=== PATIENT | female | born 1960 | race Caucasian/White ===

== ENCOUNTER → 2017-09-09 | Day surgery (SDC) | payer OTHER ==
--- NOTE | 2017-09-07 15:06 | Diagnostic Imaging Report ---
PROCEDURE: X-RAY CHEST, TWO VIEWS COMPARISON: None. INDICATIONS: PREOPERATIVE CHEST XRAY FOR CYST REMOVAL FINDINGS: Lungs are well-inflated. No focal consolidation, pleural effusion, or pneumothorax. Cardiomediastinal contour and pulmonary vasculature are within normal limits with the exception of tortuosity and atherosclerotic calcification of the thoracic aorta. No acute osseous abnormality. CONCLUSION: No acute cardiopulmonary abnormality. Dictated by: Ha Cortes M.D. on 09/07/2017 at 11:04 Electronically approved by: Ha Cortes M.D. on 09/07/2017 at 11:04
[~2017-09-09] MED LIST: BENTYL10 MG PO; BUPIVACAINE HCL 0.5% INJ 30 ML VIAL INJ ONE; CLINDAMYCIN PHOS 900MG/ D5W 50 50 ML IV ONE; DEXAMETHASONE SOD PHOS INJ 4 MG/ML VIAL ONE; FENTANYL CITRATE/PF 100MCG/2 ML INJ ONE; KETOROLAC TROMETHAMINE 30 MG/ML VIAL ONE; LEVAQUIN500 MG PO; LIDOCAINE HCL 2% LOCAL INJ 5 ML SDV VIAL INJ ONE; MIDAZOLAM HCL 2 MG/2 ML VIAL ONE; NORCO 7.5-3251 EACH PO; ONDANSETRON HCL INJ 2 MG/ML VIAL ONE; PROPOFOL IV EMULSION 10 MG/ML 20 ML VIAL ONE; SEVOFLURANE INHAL SOLN 250 ML PEN BTL ONE; Z TOPAMAX; Z.0.LEVAQUIN500 MG PO; Z.0.TOPAMAX100 MG PO; Z.0.ZOLOFT100 MG PO
--- NOTE | 2017-09-13 15:14 | Operative Report ---
DATE OF PROCEDURE: September 09, 2017 PREOPERATIVE DIAGNOSIS: Mass, left ring finger. POSTOPERATIVE DIAGNOSIS: Left ring finger ganglion cyst. OPERATION/PROCEDURE PERFORMED: Patient underwent a removal of a left ring finger ganglion followed by release of the A2 emperatriz. LORRY WEIGHER: None. ANESTHESIA: General endotracheal intubation anesthesia. IV FLUIDS: Per the anesthesia record. DESCRIPTION OF PROCEDURE: Ms. Mayen was taken to the operating room and placed in supine position on the operating room table. Following induction of general anesthesia as well as endotracheal intubation, the patient's left upper extremity was examined under anesthesia. She was found to have a mass along the long finger side of the ring finger at the base of the ring finger. This mass was palpable and hard. It was sessile in the soft tissues. The upper extremity was prepped and draped in standard surgical fashion. The case was begun by creating incision over the mass. This incision was carried through the skin only. Blunt dissection used to deepen the incision and the patient was found to have a ganglion cyst arising from the A2 emperatriz. This was excised in toto with a portion of the A2 emperatriz. It was passed to the back table and sent to pathology for identification. The remainder of the A2 emperatriz was then released. Examination of the remaining soft tissue region found no further abnormalities. The wound was copiously irrigated. The soft tissues were closed in single layer fashion. Sterile dressings were applied. The patient was then awakened and taken to postanesthesia care unit in stable condition. Job#: [id number] CHAVA
== END | disposition home or self-care (01) ==
LOC: OR 05:05
PROVIDERS: ATTEND Specialist
DX: M67.442 Ganglion, left hand (principal); G43.909 Migraine, unspecified, not intractable, without status migrainosus; F32.9 Major depressive disorder, single episode, unspecified; F41.9 Anxiety disorder, unspecified
CPT/HCPCS: 26160; 71046; 88304; 93005; J1100; J1885; J2001; J2250; J2405

== ENCOUNTER 2017-11-24 08:15 | Observation (INO) | payer OTHER ==
[~2017-11-24] VITALS: Ht 175.3 cm; Wt 121.7 kg
[~2017-11-24 08:15] MED LIST changes: -BUPIVACAINE HCL 0.5% INJ 30 ML VIAL INJ ONE; -CLINDAMYCIN PHOS 900MG/ D5W 50 50 ML IV ONE; -DEXAMETHASONE SOD PHOS INJ 4 MG/ML VIAL ONE; -FENTANYL CITRATE/PF 100MCG/2 ML INJ ONE; -KETOROLAC TROMETHAMINE 30 MG/ML VIAL ONE; -LIDOCAINE HCL 2% LOCAL INJ 5 ML SDV VIAL INJ ONE; -MIDAZOLAM HCL 2 MG/2 ML VIAL ONE; -ONDANSETRON HCL INJ 2 MG/ML VIAL ONE; -PROPOFOL IV EMULSION 10 MG/ML 20 ML VIAL ONE; -SEVOFLURANE INHAL SOLN 250 ML PEN BTL ONE
[2017-11-24] MEDS ORDERED: SODIUM CHLORIDE 0.9% 1000ML 1,000 ML IV STA (08:32)
[2017-11-24] MEDS ORDERED: LEVOFLOXACIN 500MG/D5W 100ML 100 ML IV STA (08:32)
[2017-11-24] MEDS ORDERED: DIPHENHYDRAMINE HCL INJ 50 MG/ML VIAL IV ONE ×2 (08:45→13:30)
[2017-11-24] MEDS ORDERED: ACETAMINOPHEN 325 MG TAB PO ONE (08:45)
[2017-11-24] MEDS ORDERED: METOCLOPRAMIDE HCL 10 MG/2ML VIAL IV ONE (09:00)
[2017-11-24] MEDS ORDERED: ALBUTEROL/IPRATROPIUM 3 ML NEB NEB ONE (09:00)
[2017-11-24 09:05] LABS: CLARITY,URINE SL CLOUDY (CLEAR); COLOR,URINE YELLOW (YELLOW)
[2017-11-24 09:06] LABS: BILIRUBIN,URINE NEGATIVE (NEGATIVE); KETONES,URINE NEGATIVE (NEGATIVE); LEUKOCYTE ESTERASE ,URINE TRACE (NEGATIVE); NITRITE,URINE POSITIVE (NEGATIVE); PROTEIN,URINE DIPSTICK TRACE (NEGATIVE); URINE UROBILINOGEN 0.2 mg/dL (0.2 - 1)
[2017-11-24 09:14] LABS: BASOPHILS % 0.2 % (0.0-1.0); EOSINOPHILS # (AUTO) 0.2 (0.0-0.4); EOSINOPHILS % 1.3 % (0.0-6.0); HEMATOCRIT 43.6 % (34.2-44.1); HEMOGLOBIN 13.9 g/dL (12.0-16.0); LYMPHOCYTES # (AUTO) 0.4 (1.0-3.2); MEAN CORPUSCULAR HEMOGLOBIN 28.4 pg (28-32); MEAN CORPUSCULAR HGB CONC 31.9 g/dL (31-35); MEAN CORPUSCULAR VOLUME 89.2 fL (81-99); MONOCYTES # (AUTO) 0.9 (0.2-0.8); MONOCYTES % 6.4 % (4.4-11.3); NEUTROPHILS # (AUTO) 12.2 (2.1-6.9); NEUTROPHILS % 88.6 % (38.7-80.0); PLATELET COUNT 252 x10e3/uL (140-360); RED BLOOD COUNT 4.89 x10e6/uL (3.6-5.1); RED CELL DISTRIBUTION WIDTH 14.3 % (11.7-14.4)
[2017-11-24 09:17] LABS: EPITHELIAL CELLS,URINE RARE /LPF; TRANSITIONAL EPI CELLS,URINE RARE
[2017-11-24 09:27] LABS: ALANINE AMINOTRANSFERASE 14 IU/L (0-55); ALBUMIN 3.3 g/dL (3.5-5.0); ALKALINE PHOSPHATASE 118 IU/L (40-150); ANION GAP 15.8 mmol/L (8-16); BLOOD UREA NITROGEN 20 mg/dL (7-26); BUN/CREATININE RATIO 26 (6-25); CALCIUM 9.2 mg/dL (8.4-10.2); CARBON DIOXIDE 22 mmol/L (22-29); CHLORIDE 109 mmol/L (98-107); CREATINE KINASE 38 IU/L (29-168); CREATININE, SERUM 0.77 mg/dL (0.57-1.11); EST GLOMERULAR FILTRATION RATE > 60 ML/MIN (60-); GLUCOSE 136 mg/dL (74-118); POTASSIUM 3.8 mmol/L (3.5-5.1); SODIUM 143 mmol/L (136-145)
--- NOTE | 2017-11-24 09:45 | Diagnostic Imaging Report ---
PROCEDURE: CHEST SINGLE (PORTABLE) COMPARISON: [facility], DX, CHEST 2 VIEWS, 09/07/2017, 10:16. INDICATIONS: UTI, NAUSEA, HEADACHE, SHORTNESS OF BREATH FINDINGS: LUNGS: Mild pulmonary vascular congestion is new compared to prior. PLEURA: No effusions or pneumothorax. HEART \T\ MEDIASTINUM: The heart is within normal size-limits. BONES \T\ SOFT TISSUES: No acute findings. CONCLUSION: Mild pulmonary vascular congestion. Dale Tidwell D.O. Dictated by: Dale Tidwell D.O. on 11/24/2017 at 9:52 Electronically approved by: Dale Tidwell D.O. on 11/24/2017 at 9:52
[2017-11-24] MEDS ORDERED: NITROFURANTOIN100 MG PO (10:42)
[2017-11-24] MEDS ORDERED: PYRIDIUM100 MG PO (10:42)
[2017-11-24] MEDS ORDERED: ZOFRAN ODT4 MG PO (10:57)
--- NOTE | 2017-11-24 13:09 | Diagnostic Imaging Report ---
EXAMINATION: CT of the abdomen and pelvis with contrast. TECHNIQUE: Spiral CT images of the abdomen and pelvis were performed from the lung bases to the lesser trochanters after the intravenous administration of 100 cc of Isovue 370 and the oral administration of water. Coronal and sagittal reformatted images were obtained. COMPARISON: CT abdomen and pelvis without contrast 08/09/2016 CLINICAL HISTORY:Nausea, vomiting, sepsis DISCUSSION: ABDOMEN/PELVIS: LOWER THORAX:Linear and reticular opacities in the dependent lower lobes compatible with subsegmental atelectasis. HEPATOBILIARY: No focal hepatic lesions. No intra-or extrahepatic biliary ductal dilation. The gallbladder is normal. SPLEEN: No splenomegaly. PANCREAS: No focal masses or ductal dilatation. ADRENALS: No adrenal nodules. KIDNEYS/URETERS: Bilateral punctate nonobstructing renal calculi are again noted. No hydronephrosis. No ureteral or bladder calculi. No focal renal mass lesion. PELVIC ORGANS/BLADDER: The urinary bladder is unremarkable. The uterus is anteflexed with a probable subserosal fibroid. No adnexal mass. PERITONEUM/RETROPERITONEUM: No ascites. No pneumoperitoneum. LYMPH NODES: No pelvic sidewall, retroperitoneal, or mesenteric lymphadenopathy. VESSELS: The abdominal aorta, major branch vessels, and iliac arterial systems are patent with atherosclerotic calcification. No aneurysmal dilatation. Portal vein, splenic vein, and central superior mesenteric vein are patent. GI TRACT: Postsurgical changes of the sigmoid colon with interval takedown of left lower quadrant colostomy. Appendix is normal. No small bowel dilatation to suggest obstruction. BONES AND SOFT TISSUE: Small broad-based ventral abdominal hernia without bowel obstruction. No osseous destructive lesions. IMPRESSION: No acute intra-abdominal or pelvic CT abnormalities. Bilateral nonobstructing renal calculi. Signed by: Dr. Ha Cortes M.D. on 11/24/2017 1:05 PM
[2017-11-24] MEDS ORDERED: ONDANSETRON HCL INJ 2 MG/ML VIAL IV ONE (13:30)
[2017-11-24] MEDS ORDERED: SODIUM CHLORIDE 0.9% 50ML 50 ML ONE (14:30)
[2017-11-24] MEDS ORDERED: IOPAMIDOL 370 MG/ML 200 ML INFUS..BTL INJ ONE (14:30)
[2017-11-24] MEDS ORDERED: MORPHINE SULFATE 2 MG/ML SYR IV STA (14:57)
[2017-11-24] MEDS ORDERED: ONDANSETRON HCL INJ 2 MG/ML VIAL IV NR (15:15)
[2017-11-24] MEDS ORDERED: MORPHINE SULFATE 2 MG/ML SYR IV PRN (15:15)
[2017-11-24 17:32] VITALS: BP 162/70
[2017-11-24 17:47] VITALS: BP 162/70
[2017-11-24] MEDS: ONDANSETRON HCL INJ 2 MG/ML VIAL IV PRN ×2 (19:13→22:35)
[2017-11-24 20:00] VITALS: BP 157/70
[2017-11-24] MEDS ORDERED: ACETAMINOPHEN 325 MG TAB PO PRN (20:30)
[2017-11-24] MEDS: MORPHINE SULFATE INJ 4 MG/ML INJ IV PRN (22:35)
[2017-11-25] VITALS (8 sets, daily range): BP systolic 110–134; BP diastolic 53–67
[2017-11-25] MEDS: ONDANSETRON HCL INJ 2 MG/ML VIAL IV PRN ×3 (04:45→20:39)
[2017-11-25] MEDS: MORPHINE SULFATE INJ 4 MG/ML INJ IV PRN ×2 (04:45→20:39)
[2017-11-25 05:00] LABS: BASOPHILS % 0.3 % (0.0-1.0); EOSINOPHILS # (AUTO) 0.6 (0.0-0.4); EOSINOPHILS % 4.7 % (0.0-6.0); HEMATOCRIT 39.6 % (34.2-44.1); HEMOGLOBIN 12.5 g/dL (12.0-16.0); LYMPHOCYTES # (AUTO) 0.6 (1.0-3.2); LYMPHOCYTES % 4.5 % (18.0-39.1); MEAN CORPUSCULAR HEMOGLOBIN 28.3 pg (28-32); MEAN CORPUSCULAR HGB CONC 31.6 g/dL (31-35); MEAN CORPUSCULAR VOLUME 89.6 fL (81-99); MONOCYTES # (AUTO) 0.8 (0.2-0.8); MONOCYTES % 6.2 % (4.4-11.3); NEUTROPHILS # (AUTO) 10.5 (2.1-6.9); NEUTROPHILS % 83.8 % (38.7-80.0); PLATELET COUNT 229 x10e3/uL (140-360); RED BLOOD COUNT 4.42 x10e6/uL (3.6-5.1); RED CELL DISTRIBUTION WIDTH 14.9 % (11.7-14.4)
[2017-11-25 05:22] LABS: ALANINE AMINOTRANSFERASE 11 IU/L (0-55); ALBUMIN 2.8 g/dL (3.5-5.0); ALBUMIN/GLOBULIN RATIO 0.8 (0.8-2.0); ALKALINE PHOSPHATASE 99 IU/L (40-150); ANION GAP 13.9 mmol/L (8-16); BLOOD UREA NITROGEN 25 mg/dL (7-26); BUN/CREATININE RATIO 33 (6-25); CALCIUM 9.1 mg/dL (8.4-10.2); CARBON DIOXIDE 22 mmol/L (22-29); CHLORIDE 110 mmol/L (98-107); CREATININE, SERUM 0.75 mg/dL (0.57-1.11); EST GLOMERULAR FILTRATION RATE > 60 ML/MIN (60-); GLUCOSE 121 mg/dL (74-118); POTASSIUM 3.9 mmol/L (3.5-5.1); SODIUM 142 mmol/L (136-145)
[2017-11-25] MEDS ORDERED: LEVOFLOXACIN 500MG/D5W 100ML 100 ML IV SCH (09:00)
[2017-11-25] MEDS ORDERED: VANCOMYCIN 1GM/NS 250 ML 250 ML IV ONE (09:30)
[2017-11-25] MEDS: DOXYCYCLINE HYCLATE TABLET 100 MG TAB PO SCH ×2 (10:17→20:39)
[2017-11-25] MEDS: SERTRALINE HCL 100 MG TAB PO SCH (10:17)
[2017-11-25] MEDS: AZTREONAM 2GM/NS 100ML 100 ML IV SCH ×2 (11:43→18:30)
[2017-11-25] MEDS: ACETAMINOPHEN/CODEINE 300MG - 30MG TAB PO PRN (12:08)
[2017-11-25] MEDS ORDERED: ENOXAPARIN SOD INJ 40 MG/0.4 ML SYR SC SCH (17:00)
[2017-11-25] MEDS ORDERED: TOPIRAMATE 100 MG TAB PO SCH (21:00)
[2017-11-26 00:05] VITALS: BP 126/64
[2017-11-26] MEDS: ACETAMINOPHEN/CODEINE 300MG - 30MG TAB PO PRN (00:19)
[2017-11-26] MEDS: AZTREONAM 2GM/NS 100ML 100 ML IV SCH ×2 (02:30→09:21)
[2017-11-26 04:10] VITALS: BP 127/58
[2017-11-26] MEDS: ONDANSETRON HCL INJ 2 MG/ML VIAL IV PRN ×2 (05:05→08:01)
[2017-11-26 05:24] LABS: BASOPHILS % 0.4 % (0.0-1.0); EOSINOPHILS # (AUTO) 1.1 (0.0-0.4); EOSINOPHILS % 14.2 % (0.0-6.0); HEMATOCRIT 40.4 % (34.2-44.1); HEMOGLOBIN 12.6 g/dL (12.0-16.0); LYMPHOCYTES % 13.1 % (18.0-39.1); MEAN CORPUSCULAR HEMOGLOBIN 28.3 pg (28-32); MEAN CORPUSCULAR HGB CONC 31.2 g/dL (31-35); MEAN CORPUSCULAR VOLUME 90.8 fL (81-99); MONOCYTES # (AUTO) 0.6 (0.2-0.8); MONOCYTES % 7.4 % (4.4-11.3); NEUTROPHILS % 64.5 % (38.7-80.0); PLATELET COUNT 238 x10e3/uL (140-360); RED BLOOD COUNT 4.45 x10e6/uL (3.6-5.1); RED CELL DISTRIBUTION WIDTH 14.6 % (11.7-14.4)
[2017-11-26 05:49] LABS: BLOOD UREA NITROGEN 33 mg/dL (7-26); BUN/CREATININE RATIO 48 (6-25); CALCIUM 9.3 mg/dL (8.4-10.2); CARBON DIOXIDE 21 mmol/L (22-29); CHLORIDE 108 mmol/L (98-107); CREATININE, SERUM 0.69 mg/dL (0.57-1.11); EST GLOMERULAR FILTRATION RATE > 60 ML/MIN (60-); GLUCOSE 100 mg/dL (74-118); MAGNESIUM 1.9 MG/DL (1.3-2.1); SODIUM 141 mmol/L (136-145)
--- NOTE | 2017-11-26 06:08 | Diagnostic Imaging Report ---
CHEST SINGLE (PORTABLE), 11/26/2017 5:29 AM Technique: CHEST SINGLE (PORTABLE) Comparison: 07/03/2016 Clinical history: Cough Findings: See Impression Impression: Limited by portable technique and soft tissue attenuation. 1. Stable cardiomediastinal silhouette. 2. Mild right basilar opacity which may reflect atelectasis/vascular crowding or pneumonia. Recommend follow-up upright PA and lateral. 3. No significant effusion. Signed by: Dr Astrid Betancur MD on 11/26/2017 6:03 AM
[2017-11-26 08:00] VITALS: BP 135/64
[2017-11-26 08:03] VITALS: BP 135/64
[2017-11-26] MEDS: DOXYCYCLINE HYCLATE TABLET 100 MG TAB PO SCH (09:21)
[2017-11-26] MEDS: SERTRALINE HCL 100 MG TAB PO SCH (09:21)
[2017-11-26] MEDS: ALBUTEROL/IPRATROPIUM 3 ML NEB NEB SCH ×2 (11:05→14:37)
[2017-11-26 11:32] VITALS: BP 133/74
--- NOTE | 2017-11-26 15:23 | Discharge Summary ---
PRIMARY CARE DOCTOR: Michelle Norman MD FINAL DIAGNOSIS: Bronchitis. SECONDARY DIAGNOSES 1. Nonobstructive kidney stones. 2. Morbid obesity. 3. Chiari malformation. HYDROELECTRIC STATION OPERATOR CHIEF: None. PROCEDURES/STUDIES PERFORMED: Abdominal CT. HISTORY: Per [facility] HOSPITAL COURSE: The patient was initially admitted and thought to be having acute pyelonephritis given the fact that the patient was prescribed Macrobid by the urgent care that she went to along with her dysuria. However, I got the records from the urgent care. Her UA was completely normal. Therefore, her dysuria is likely due to bilateral, tiny, nonobstructive kidney stones. I have informed the patient and encouraged her to keep herself well hydrated. Her low-grade fever is likely due to bronchitis. Empirically, the patient was put on doxycycline. She did well, along with breathing treatment. Her lungs sound much better today. The patient is stable for going home. I will give her 3 more days of doxycycline just in case there is a pneumonia. The patient was seen and examined today. CONDITION ON DISCHARGE: Improved. DISCHARGE MEDICATIONS: Please see medication reconciliation form. ALISHA CALLAHAN M.D. Job#: [id number] cc:MICHELLE NORMAN MD
[2017-11-26] MEDS ORDERED: DOXYCYCLINE HY100 MG PO (15:25)
[2017-11-26 15:30] VITALS: BP 121/60
== END 2017-11-26 16:20 | disposition home or self-care (01) ==
LOC: ER 08:15 → ERHOLD 15:10 → IMCU 17:15
PROVIDERS: ADMIT Internal Medicine; ATTEND Internal Medicine
DX: J40 Bronchitis, not specified as acute or chronic (principal); J06.9 Acute upper respiratory infection, unspecified; E66.01 Morbid (severe) obesity due to excess calories; Q07.00 Arnold-Chiari syndrome without spina bifida or hydrocephalus; Z88.0 Allergy status to penicillin; Z68.39 Body mass index [BMI] 39.0-39.9, adult; N20.0 Calculus of kidney
CPT/HCPCS: 36415 ×3; 71045 ×2; 74177; 80048; 80053 ×2; 81001; 82550; 82553; 83605; 83735; 83880; 84484; 85025 ×3; 87040; 87086; 87400; 94640 ×2; 99285; G0378 ×3; J1200; J1650; J1956; J2270 ×3; J2405 ×3; J2765; J3370; J7030; Q9967

== ENCOUNTER → 2020-12-13 | Outpatient (CLI) | payer OTHER ==
[~2020-12-13] MED LIST changes: +DOXYCYCLINE HY100 MG PO; +NITROFURANTOIN100 MG PO; +PYRIDIUM100 MG PO; +ZOFRAN ODT4 MG PO
== END ==
LOC: MAMMO 08:38
PROVIDERS: ATTEND Internal Medicine
DX: Z12.31 Encounter for screening mammogram for malignant neoplasm of breast (principal); M94.9 Disorder of cartilage, unspecified
CPT/HCPCS: 77067; 77080

== ENCOUNTER → 2020-12-26 | Outpatient (CLI) | payer OTHER ==
[2020-12-26 09:41] LABS: BASOPHILS # (AUTO) 0.2 (0.0-0.1); BASOPHILS % 2.8 % (0.0-1.0); EOSINOPHILS # (AUTO) 0.3 (0.0-0.4); EOSINOPHILS % 4.9 % (0.0-6.0); HEMATOCRIT 47.4 % (34.2-44.1); HEMOGLOBIN 14.9 g/dL (12.0-16.0); LYMPHOCYTES # (AUTO) 2.6 (1.0-3.2); LYMPHOCYTES % 38.4 % (18.0-39.1); MEAN CORPUSCULAR HEMOGLOBIN 28.1 pg (28-32); MEAN CORPUSCULAR HGB CONC 31.4 g/dL (31-35); MEAN CORPUSCULAR VOLUME 89.4 fL (81-99); MONOCYTES # (AUTO) 0.4 (0.2-0.8); MONOCYTES % 6.2 % (4.4-11.3); NEUTROPHILS # (AUTO) 3.2 (2.1-6.9); NEUTROPHILS % 47.4 % (38.7-80.0); PLATELET COUNT 283 x10e3/uL (140-360); RED CELL DISTRIBUTION WIDTH 16.1 % (11.7-14.4)
[2020-12-26 10:12] LABS: ALBUMIN 3.7 g/dL (3.5-5.0); ALBUMIN/GLOBULIN RATIO 1.1 (0.8-2.0); ANION GAP 14.3 mmol/L (8-16); CREATININE, SERUM 0.84 mg/dL (0.57-1.11); POTASSIUM 4.3 mmol/L (3.5-5.1)
[2020-12-26 10:32] LABS: THYROID STIMULATING HORMONE 1.21 uIU/mL (0.350-4.940)
== END ==
LOC: LAB 09:23
PROVIDERS: ATTEND Internal Medicine
DX: Z00.00 Encounter for general adult medical examination without abnormal findings (principal); R03.0 Elevated blood-pressure reading, without diagnosis of hypertension; K57.90 Diverticulosis of intestine, part unspecified, without perforation or abscess without bleeding
CPT/HCPCS: 36415; 80053; 80061; 83036; 84443; 85025